=== PATIENT | male | born 1955 | race Caucasian/White ===

== ENCOUNTER 2017-03-18 07:57 | Observation (INO) | payer MEDICARE, BC ==
--- NOTE | 2017-03-18 08:24 | ERNOTE ---
Lower Extremity HPI - General Lower Extremities Pain: leg: left Time Seen by Provider: 03/18/17 08:05 Source: patient Exam Limitations: no limitations - Immun/Allergies/Home Medications Immunizations: IMMUNIZATION HX History of Influenza Vaccine No Hx Pneumococcal Vaccination No Allergies/Adverse Reactions: Allergies Allergy/AdvReac Type Severity Reaction Status Date / Time cefdinir [From Omnicef] Allergy Verified 03/18/17 15:23 doxepin Allergy Shortness Verified 03/18/17 15:23 of Breath metformin [From Glucophage] Allergy Verified 03/18/17 15:23 Penicillins Allergy Nausea Verified 03/18/17 15:23 sulindac Allergy Verified 03/18/17 15:23 Home Medications: HOME MEDICATIONS Cyanocobalamin (Vitamin B-12) [Vitamin B-12] 2,000 mcg PO DAILY 03/18/17 [Last Taken Unknown] Losartan/Hydrochlorothiazide [Hyzaar 100-25 Tablet] 1 each PO DAILY 03/18/17 [ Last Taken Unknown] Meloxicam [Mobic] 7.5 mg PO BID PRN 03/18/17 [Last Taken Unknown] Potassium Chloride [Klor-Con M10] 10 meq PO DAILY 03/18/17 [Last Taken Unknown] Propranolol HCl [Inderal Xl] 120 mg PO BID 03/18/17 [Last Taken Unknown] Simvastatin [Zocor] 20 mg PO HS 03/18/17 [Last Taken Unknown] hydrALAZINE HCL [Hydralazine HCl] 25 mg PO BIDWM 03/18/17 [Last Taken Unknown] metFORMIN HCL [Glucophage Xr] 500 mg PO BIDWM 03/18/17 [Last Taken Unknown] rOPINIRole HCL [Requip] 2 tab PO HS 03/18/17 [Last Taken Unknown] - History of Present Illness Narrative: Patient fell last night around 23:00. He is very vague about the exact mechanism of fall, lost balance, fell forward and was unable to get up by himself. architectural model maker helped him into his power chair. He didn't want to be evaluated at that time as his demented mother lives with him and he had nobody to stay with her. This morning he called EMS again as he was unable to ambulate , denies any head injury of LOC, pain is mainly in the left leg. Date (Duration): 04/16/17 Time (Timing): 23:00 Location of Incident: home Method of Injury: Reports: fell Reason for Fall: Reports: unknown Loss of Consciousness: Reports: no loss of consciousness Modifying Factors - (Worsens): Reports: movement Associated Symptoms: Reports: unable to bear weight Other Injuries: Reports: none Subsequent Symptoms: Denies: sensory loss, numbness Review of Systems - Review of Systems Constitutional: Absent: recent illness, fever, chills ENT: Absent: nose congestion, sore throat Respiratory: Absent: shortness of breath, cough Cardiology: Absent: chest pain Gastrointestinal/Abdominal: Present: nausea, diarrhea - intermittent. Absent: vomiting Genitourinary: Present: no symptoms reported Musculoskeletal: Present: See HPI Neurological: Absent: weakness, numbness - Patient's Past Medical History Patient History - Medical: Diabetes Type 2 Patient History - Cardiac/Respiratory: Hypertension, Hyperlipidemia Patient History - Cancer: No Hx of Cancer Patient History - Surgical Procedures: T & A - Family History Father Family History - Cardiac/Respiratory: CVA/Stroke, Hypertension Family History - Cancer: History Unknown Mother Family History - Cardiac/Respiratory: Hypertension Family History - Cancer: History Unknown Maternal Grandfather Family History - Cardiac/Respiratory: Coronary Heart Disease, Hypertension Family History - Cancer: History Unknown Maternal grandmother Family History - Cardiac/Respiratory: Coronary Heart Disease, Hypertension Family History - Cancer: History Unknown Paternal Grandfather Family History - Cardiac/Respiratory: CVA/Stroke Family History - Cancer: History Unknown Paternal Grandmother Family History - Cardiac/Respiratory: CVA/Stroke Family History - Cancer: History Unknown - Social History Living Situations: home Psych History: No pertinent hx Alcohol Use: none Drug Use: none - Immunizations Hx Pneumococcal Vaccination: No History of Influenza Vaccine: No Physical Exam - Physical Exam General Appearance: Present: wd/wn, alert, no apparent distress, obese, other - very unkept, feces on legs, bottom of socks soaked with urine/feces? Ears, Nose, Throat: Present: normal pharynx Neck: Present: normal inspection Respiratory: Present: no respiratory distress, normal breath sounds, no accessory muscle use, chest nontender, lungs clear Cardiovascular/Chest: Present: regular rate, rhythm, no murmur Gastrointestinal/Abdominal: Present: nontender, nondistended, soft Back Exam: Present: no vertebral tenderness Extremity Exam: Present: other - no tenderness on palpation and movement of upper extremity, patient complains of diffuse tenderness of palpation of right lower leg as well as left hip, leg, knee, and lower leg, no obvious deformities , no bruising, no skin breakdown, pain on movment of left hip (but also pain when patient is being covered with a blanket), normal pulses both feet Neurological Exam: Present: alert, oriented, normal mood/affect, no motor/ sensory deficits Skin Exam: Present: normal color, warm/dry ED Progress - Vital Signs Patient's Vital Signs:: I have reviewed the patient's vital signs. Vital Signs: Vital Signs 03/18/17 08:04 Temperature 36.4 C L Pulse Rate 93 Respiratory 18 Rate Blood Pressure 124/64 O2 Sat by Pulse 96 Oximetry - X-Ray X-Ray #1 X-Ray: tibula/fibula - proximal fib fracture, recoomend ankle and knee films Interpretation: Reviewed by me X-Ray #2 X-Ray: ankle - equivocal and chroninc changes Interpretation: Reviewed by me X-Ray #3 X-Ray: knee - prox fib fracture Interpretation: Reviewed by me X-Ray #4 X-Ray: tibula/fibula - no fracture X-Ray #5 X-Ray: hip - collapsed femoral head, possible chronic, femur: no acute Interpretation: Reviewed by me - Progress/Reassessment Chief Complaint: Hip Pain/Injury Progress Note-Subjective: 03/18/17 11:[address] Burger, reviewed Xrays, left hip fracture seems old, treat right fibular fracture with boot as patient is weight bearing follow up next week in clinic 03/18/17 11:45 discussed results and plan with patient 03/18/17 12:30 patient unable to bear weight or ambulate, discussed case with porter sample case, patient does not want to go to senior living for rehab, suggest admission to hospital for PT/OT evaluation and pain control 03/18/17 13:05 discussed with jarrett Flores to admit as above Departure Clinical Impression: Fracture of proximal end of fibula Qualifiers: Encounter type: initial encounter Fracture type: closed Fracture morphology: unspecified fracture morphology Laterality: right Qualified Code(s): S82.831A - Other fracture of upper and lower end of right fibula, initial encounter for closed fracture - Departure Disposition: [facility] Condition: Good
--- OUTSIDE RECORDS SUMMARY | 2017-03-18 09:32 | XMS REPORT | Continuity of Care Document ---
:1955 Author Organization [facility] ([facility]) [place] [address] Phone [phone] Care Team Providers Name Role Phone Unavailable Primary Care Provider Unavailable Source Comments This disclosure is being made pursuant to the Care Everywhere program, applicable federal and state laws, and may not contain all informaitonavailable regarding this patient.[facility] ([facility]) Active Allergies and Adverse Reactions Not on File Current Medications Not on file Active Problems Not on file Social History Tobacco Use Types Packs/Day Years Used Date Never Assessed Plan of Care Health Maintenance Due Date Last Done Comments HCV Screening 1955 Hepatitis B Vaccine (1 of 3 - Primary Series) 1955 Tdap Vaccine 1968 Lipid Disorder Screening 1975 MMR Vaccine 1975 Td Vaccine 1975 Colonoscopy 2007 Prostate Cancer Screening 2007 Influenza Vaccine: Seasonal (#1) 07/02/2016 Results from Last 3 Months Not on file
[2017-03-18] MEDS ORDERED: HYDROmorphone HCL 1 MG/ML DISP.SYRIN IV ONE (10:35)
[2017-03-18] MEDS ORDERED: HYDROmorphone HCL 1 MG/ML DISP.SYRIN ONE (11:06)
--- OUTSIDE RECORDS SUMMARY | 2017-03-18 13:18 | XMS REPORT | Continuity of Care Document ---
:1955 Author Organization [facility] ([facility]) [place] [address] Phone [phone] Care Team Providers Name Role Phone Unavailable Primary Care Provider Unavailable Source Comments This disclosure is being made pursuant to the Care Everywhere program, applicable federal and state laws, and may not contain all informaitonavailable regarding this patient.[facility] ([facility]) Active Allergies and Adverse Reactions Not on [...]
[2017-03-18] MEDS ORDERED: PROMETHAZINE HCL 5 MG in DEXTROSE 5 % IN WATER 50 ML IV PRN ×2 (13:19)
[2017-03-18] MEDS ORDERED: ONDANSETRON HCL/PF 2 MG/ML VIAL IV PRN (13:19)
[2017-03-18] MEDS ORDERED: HYDROmorphone HCL 1 MG/ML DISP.SYRIN IV PRN (13:19)
[2017-03-18] MEDS ORDERED: ACETAMINOPHEN 500 MG TABLET PO PRN (13:19)
[2017-03-18] MEDS ORDERED: HYDROcodone/ACETAMINOPHEN 1 EACH TABLET PO PRN (14:10)
[2017-03-18] MEDS ORDERED: MORPHINE SULFATE 2 MG/ML DISP.SYRIN IV PRN (14:11)
--- NOTE | 2017-03-18 16:29 | HP ---
Chief Complaint - Chief Complaint Date of Service: 03/18/17 Time of Service: 16:20 Chief Complaint: left leg pain History of Present Illness: Estuardo Cook, is a 61-year-old white male, with previous medical history of morbid obesity ,diabetes mellitus type 2, hypertension, hyperlipidemia, osteoarthritis who last night while going to his room in the front of his house lost his balance and fell down. He could not stand up and so EMS was called and they lifted him up to his power chair. He was experiencing left leg pain, however, he did not want to go to the emergency room because his mother who has dementia and is not able to take care of herself. This morning, because of the continued pain, he decided to go to the emergency room . His x-rays showed oblique fracture of the right proximal fibula on his right leg. The ER called Orthopedics and they recommended Cam boot. He was then admitted for observation as he was not able to ambulate due to pain. - Patient's Past Medical History Patient History - Medical: Diabetes Type 2, Osteoarthritis Patient History - Cardiac/Respiratory: Hypertension, Hyperlipidemia Patient History - Cancer: No Hx of Cancer Patient History - Surgical Procedures: T & A Patient History - Other: None - Family History Father Family History - Cardiac/Respiratory: CVA/Stroke, Hypertension Family History - Cancer: History Unknown Mother Family History - Cardiac/Respiratory: Hypertension Family History - Cancer: History Unknown Maternal Grandfather Family History - Cardiac/Respiratory: Coronary Heart Disease, Hypertension Family History - Cancer: History Unknown Maternal grandmother Family History - Cardiac/Respiratory: Coronary Heart Disease, Hypertension Family History - Cancer: History Unknown Paternal Grandfather Family History - Cardiac/Respiratory: CVA/Stroke Family History - Cancer: History Unknown Paternal Grandmother Family History - Cardiac/Respiratory: CVA/Stroke Family History - Cancer: History Unknown - Social History Living Situations: home Psych History: No pertinent hx Alcohol Use: none Drug Use: none - Immunizations Hx Pneumococcal Vaccination: No History of Influenza Vaccine: No Review Of Systems (GEN) - Review of Systems Generalized/Overall Review: Present: Weakness EENTM: Present: No Symptoms Reported Respiratory: Absent: Cough, Shortness of Breath, Orthopnea Cardiac: Absent: Chest Pain, Edema, Palpitations Abdominal: Absent: Nausea, Vomiting Genitourinary: Absent: Urgency, Frequency Musculoskeletal: Present: Joint Pain Immunizations: IMMUNIZATION HX History of Influenza Vaccine No Hx Pneumococcal Vaccination No Allergies/Adverse Reactions: Allergies Allergy/AdvReac Type Severity Reaction Status Date / Time cefdinir [From Omnicef] Allergy Verified 03/18/17 15:23 doxepin Allergy Shortness Verified 03/18/17 15:23 of Breath metformin [From Glucophage] Allergy Verified 03/18/17 15:23 Penicillins Allergy Nausea Verified 03/18/17 15:23 sulindac Allergy Verified 03/18/17 15:23 Home Medications: HOME MEDICATIONS Cyanocobalamin (Vitamin B-12) [Vitamin B-12] 2,000 mcg PO DAILY 03/18/17 [Last Taken Unknown] Losartan/Hydrochlorothiazide [Hyzaar 100-25 Tablet] 1 each PO DAILY 03/18/17 [ Last Taken Unknown] Meloxicam [Mobic] 7.5 mg PO BID PRN 03/18/17 [Last Taken Unknown] Potassium Chloride [Klor-Con M10] 10 meq PO DAILY 03/18/17 [Last Taken Unknown] Propranolol HCl [Inderal Xl] 120 mg PO BID 03/18/17 [Last Taken Unknown] Simvastatin [Zocor] 20 mg PO HS 03/18/17 [Last Taken Unknown] hydrALAZINE HCL [Hydralazine HCl] 25 mg PO BIDWM 03/18/17 [Last Taken Unknown] metFORMIN HCL [Glucophage Xr] 500 mg PO BIDWM 03/18/17 [Last Taken Unknown] rOPINIRole HCL [Requip] 2 tab PO HS 03/18/17 [Last Taken Unknown] Exam - Exam Vital Signs: Vital Signs - Last Taken Temp 36.7 C 03/18/17 15:22 Pulse 84 03/18/17 15:22 Resp 116 H 03/18/17 15:22 BP 116/74 03/18/17 15:22 Pulse Ox 94 03/18/17 15:22 Constitutional: Present: Alert, Oriented x3, Cooperative ENT Exam: Present: hearing grossly normal Eye Exam: bilateral eye: normal inspection, PERRL, EOMI Neck: Present: supple Back Exam: Present: no CVA tenderness Breasts: Present: Exam deferred Respiratory: Present: decreased breath sounds, No rales, No wheezing Cardiovascular/Chest: Present: regular rate, rhythm, no murmur, JVD Abdomen: Present: Normal bowel sounds, soft, nontender, obese Extremity: Present: pedal edema, other - positive tenderness over both lateral areas of his knees left more than right? Assessment/Plan - Assessment/Plan (1) Fracture of proximal end of fibula Assessment: will get a formal consult from Orthopedics. Will have PT eval. If still with difficulty of ambulation , will discharge him to [facility] for further PT and strengthening exercises . His mother was just admitted there now. Will consider doing left knee xray as his pain on admission was more on the the left. Problem: Acute Qualifiers: Encounter type: initial encounter Fracture type: closed Fracture morphology: unspecified fracture morphology Laterality: right Qualified Code (s): S82.831A - Other fracture of upper and lower end of right fibula, initial encounter for closed fracture (2) Morbid obesity Problem: Chronic Qualifiers: Obesity type: due to excess calories Qualified Code(s): E66.01 - Morbid ( severe) obesity due to excess calories (3) Diabetes mellitus type 2 in obese Problem: Chronic (4) Hypertension Problem: Chronic Qualifiers: Hypertension type: essential hypertension Qualified Code(s): I10 - Essential (primary) hypertension
[2017-03-18] MEDS: hydrALAZINE HCL 25 MG TABLET PO SCH (16:54)
[2017-03-18] MEDS: NYSTATIN 30 APPL TUBE TP SCH (20:37)
[2017-03-18] MEDS: PROPRANOLOL HCL 60 MG CAPSULE.SA PO SCH (20:38)
[2017-03-18] MEDS ORDERED: ROSUVASTATIN CALCIUM 10 MG TABLET PO SCH (21:00)
[2017-03-18] MEDS ORDERED: SIMVASTATIN 20 MG TABLET PO SCH (21:00)
[2017-03-18] MEDS ORDERED: rOPINIRole HCL 0.5 MG TABLET PO SCH (21:00)
[2017-03-19] MEDS: oxyCODONE HCL/ACETAMINOPHEN 1 TAB TABLET PO PRN ×3 (01:30→12:57)
[2017-03-19 06:42] VITALS: BP 105/71
[2017-03-19] MEDS: PROPRANOLOL HCL 60 MG CAPSULE.SA PO SCH (08:11)
[2017-03-19] MEDS: hydrALAZINE HCL 25 MG TABLET PO SCH (08:11)
--- NOTE | 2017-03-19 08:11 | PN ---
Progess Note - Interim Narrative: 03/19/17 08:10 Awaiting PT Eval. Possible transfer to [place] for PT/strengthening exercise before going home. His mother was admitted to [facility] yesterday.
[2017-03-19] MEDS: NYSTATIN 30 APPL TUBE TP SCH (08:12)
[2017-03-19] MEDS ORDERED: POTASSIUM CHLORIDE 10 MEQ TABLET.SA PO SCH (09:00)
[2017-03-19] MEDS ORDERED: CYANOCOBALAMIN 1,000 MCG TABLET PO SCH (09:00)
[2017-03-19] MEDS ORDERED: LOSARTAN POTASSIUM 50 MG TABLET PO SCH (09:00)
[2017-03-19] MEDS ORDERED: LACTOBACILLUS ACIDOPHILUS 100 CAP BTL PO SCH (09:00)
[2017-03-19] MEDS ORDERED: HYDROCHLOROTHIAZIDE 25 MG TABLET PO SCH (09:00)
--- NOTE | 2017-03-19 11:44 | DS ---
(1) Fracture of proximal end of fibula Diagnosis(s): he will be treated conservatively with a Cam boot and follow up with Ortho on Dr. Burger's 1st opening in the clinic on Saturday or Saturday. Problem: Acute Qualifiers: Encounter type: initial encounter Fracture type: closed Fracture morphology: unspecified fracture morphology Laterality: right Qualified Code (s): S82.831A - Other fracture of upper and lower end of right fibula, initial encounter for closed fracture (2) Morbid obesity Problem: Chronic Qualifiers: Obesity type: due to excess calories Qualified Code(s): E66.01 - Morbid ( severe) obesity due to excess calories (3) Diabetes mellitus type 2 in obese Problem: Chronic (4) Hypertension Problem: Chronic Qualifiers: Hypertension type: essential hypertension Qualified Code(s): I10 - Essential (primary) hypertension (5) Physical deconditioning Problem: Acute Description of Stay: Estuardo Cook, is a 61-year-old white male, with previous medical history of morbid obesity ,diabetes mellitus type 2, hypertension, hyperlipidemia, osteoarthritis who on the night before his admission of 03/18/17 , while going to his room in the front of his house, lost his balance and fell down. He could not stand up and so EMS was called and they lifted him up to his power chair. He was experiencing left leg pain, however, he did not want to go to the emergency room because his mother who has dementia is not able to take care of herself. On the morning of admission, because of the continued pain, he decided to go to the emergency room . His x-rays showed oblique fracture of the right proximal fibula on his right leg. The ER called Orthopedics and they recommended Cam boot but he could not ambulate due to pain and deconditioning. He was then admitted for observation . I talked to Dr. Burger and he will follow him up with his next open day in his clinic. He is stable to be discharge to the [facility] for PT/OT and strengthening exercises . Procedures Performed: none [facility]charge Disposition: [facility] Disposition: [facility] Condition: Good Discharge Diet: Consistent carbs Longterm Therapy: Physicial Therapy, Occupation Therapy Additional Patient Instructions (free text): Follow up with Dr. Burger on 1st open day in his clinic- Saturday or Saturday. Jennifer (Cloth Packer) to call for appointment time and date. I will follow up with him in the [facility]. Complete Home Medications List: Complete Home Medication List: Cyanocobalamin (Vitamin B-12) [Vitamin B-12] 2,000 mcg PO DAILY 03/18/17 Losartan/Hydrochlorothiazide [Hyzaar 100-25 Tablet] 1 each PO DAILY 03/18/17 Potassium Chloride [Klor-Con M10] 10 meq PO DAILY 03/18/17 Propranolol HCl [Inderal Xl] 120 mg PO BID 03/18/17 Simvastatin [Zocor] 20 mg PO HS 03/18/17 hydrALAZINE HCL [Hydralazine HCl] 25 mg PO BIDWM 03/18/17 metFORMIN HCL [Glucophage Xr] 500 mg PO BIDWM 03/18/17 rOPINIRole HCL [Requip] 2 tab PO HS 03/18/17 Acetaminophen [Tylenol] 1,000 mg PO Q6H PRN #0 tablet 03/19/17 oxyCODONE HCL/ACETAMINOPHEN [Percocet 5 MG/325 MG] 2 tab PO Q4H PRN #0 tablet
== END 2017-03-19 13:41 ==
LOC: ER 07:57 → MS 13:14
PROVIDERS: ADMIT Internal Medicine; ATTEND Internal Medicine
DX: S82.831A Other fracture of upper and lower end of right fibula, initial encounter for closed fracture (principal); E11.9 Type 2 diabetes mellitus without complications; I10 Essential (primary) hypertension; E78.5 Hyperlipidemia, unspecified; E66.01 Morbid (severe) obesity due to excess calories; W18.30XA Fall on same level, unspecified, initial encounter; Y92.009 Unspecified place in unspecified non-institutional (private) residence as the place of occurrence of the external cause
CPT/HCPCS: 29515; 73502; 73552; 73562; 73590; 73610; 96374; 96375; 97162; 99284; G0378; G8978; G8979; G8980